=== PATIENT | male | born 1960 | race Caucasian/White ===

== ENCOUNTER 2016-08-14 15:00 | Inpatient (IN) | payer BC ==
[~2016-08-14] VITALS: Ht 188 cm; Wt 106.1 kg
--- NOTE | ~2016-08-14 | OR ---
PATIENT'S NAME: ALFRED LILLY [facility] AGE: 56 Y [address] ROOM: [place] [address] LOCATION: [facility] ADMIT DATE: 08/20/2016 OR/Procedure Report DISCHARGE DATE: FAMILY PHYSICIAN: PRITI PATEL MD ATTENDING PHYSICIAN: HAY MCKENZIE SURGEON: Hay Mckenzie MD HOUSEKEEPING ATTENDANT: 1. Claudio Zapata CST/KAY. 2. Hay Morales. DATE OF PROCEDURE: 08/20/2016 PRE-OP DIAGNOSIS: Degenerative joint disease left knee. POST-OP DIAGNOSIS: Degenerative joint disease left knee. OPERATION: Left total knee arthroplasty with computer navigation. ANESTHESIA: Spinal anesthesia plus adductor canal block plus periarticular local anesthesia (ropivacaine with epinephrine and Toradol). ESTIMATED BLOOD LOSS: Less than 10 mL. DRAIN: None. SPECIMEN: None. COMPLICATIONS: None. IMPLANT SYSTEM: Welcome Triathlon Size 6 left posterior stabilized femoral component Size 5 universal modular tibial baseplate. 9 mm posterior stabilized size 5 X3 tibial polyethylene insert. 35 mm Oval X3 patella component (triple pegged). INDICATIONS FOR SURGERY: Alfred Lilly is a 56-year-old male who presents with advanced left knee degenerative joint disease and associated severely compromised activities of daily living. The patient has decided to proceed with knee replacement after having been thoroughly counseled regarding the associated risks, benefits, and limitations. We have specifically reviewed the risks and implications of infection, deep venous thrombosis, pulmonary embolism, mortality, neurovascular complications, blood transfusion (and associated potential for disease transmission or transfusion reaction), stiffness, instability, mechanical deterioration of the components (due to wear and or loosening), and the potential need for revision. We have also emphasized the importance of active involvement and compliance with post- operative physical therapy as a means of optimizing range of motion and PATIENT'S NAME: ALFRED LILLY [facility] AGE: 56 Y [address] ROOM: [place] [address] LOCATION: [facility] ADMIT DATE: 08/20/2016 OR/Procedure Report DISCHARGE DATE: FAMILY PHYSICIAN: PRITI PATEL MD ATTENDING PHYSICIAN: HAY MCKENZIE functional recovery. Informed consent has been granted. DESCRIPTION OF PROCEDURE: The patient was positioned supine after administration of anesthesia and prophylactic antibiotics. A well-padded pneumatic tourniquet was placed around the left proximal thigh, and the left lower extremity was prepped and draped with vigilant sterile technique. The patient's name as well as the intended operative side and procedure were confirmed with a verbal time-out involving myself, the circulating nurse, the scrub nurse, and the anesthesiologist. Examination under anesthesia demonstrated a long curvilinear medial parapatellar arthrotomy scar with associated moderate surrounding subcutaneous adipose atrophy. There was a relatively short lateral parapatellar arthrotomy scar. The preexisting curvilinear medial scar was incorporated into the incision. There were no active skin lesions or masses. There was a moderate effusion. There was no erythema. There was no abnormal warmth. Range of motion under anesthesia was from a 2-degree flexion contracture to 130 degrees of flexion. There was no clinically evident ligamentous insufficiency. The left lower extremity was elevated and exsanguinated with an Esmarch wrap, and the pneumatic tourniquet was inflated to 300mmHg. The knee was approached through a longitudinal midline incision. A medial parapatellar arthrotomy was performed and the patella was everted. Examination of the joint space demonstrated a moderate amount of benign-appearing translucent synovial fluid. There was no active synovitis. There was a 5 mm smoothly contoured osseous loose body at the posterior aspect of the intercondylar notch. The anterior cruciate ligament was present but attenuated. The posterior cruciate ligament was intact. There were small osteophytes at the intercondylar notch. There was a markedly hypertrophic fibrotic infrapatellar fat pad. This was excised. The superior capsule demonstrated extensive fibrosis as well, and the fibrotic portions of the capsule were excised. There was full-thickness loss of articular cartilage involving a 1 cm region at the medial aspect of the apex of the patella. There was a 1 x 3 cm region of full-thickness articular cartilage loss at the medial femoral condyle (with extensive high-grade surrounding partial-thickness articular cartilage loss). There were 2 separate 5 x 20 mm regions of full-thickness articular cartilage loss at the medial tibial plateau. There were extensive grade 3 degenerative changes throughout the remainder of the medial tibial plateau. There was a 1 x 2 cm region of full-thickness articular cartilage loss at the lateral femoral condyle. There were small osteophytes at the medial and lateral femoral condyles as well as the medial tibial plateau. There were moderate grade 3 degenerative changes (with associated full thickness fissuring) at the medial aspect of the lateral tibial plateau. There was a 5 mm region of full- thickness articular cartilage loss at the medial aspect of the femoral PATIENT'S NAME: ALFRED LILLY [facility] AGE: 56 Y [address] ROOM: [address] [address] LOCATION: [facility] ADMIT DATE: 08/20/2016 OR/Procedure Report DISCHARGE DATE: FAMILY PHYSICIAN: PRITI PATEL MD ATTENDING PHYSICIAN: HAY MCKENZIE trochlea and a separate 1 cm diameter region of high-grade partial thickness articular cartilage loss at the femoral trochlea. There were moderate grade 3 degenerative changes throughout the lateral facet of the patella. There was mild inner perimeter tearing of the lateral meniscus. The medial meniscus was truncated, but there was extensive degenerative tearing of the residual portions of the anterior and posterior horns of the medial meniscus. Photographic documentation of the patient's intra-articular findings was obtained. Remnants of the menisci and cruciate ligaments were excised. The [employer] computer navigation femoral tracker was pinned in place at the distal aspect of the femoral trochlea. Absence of motion between the femur and the tracking device was confirmed manually and visually. Femoral osseous landmarks were obtained in order to calibrate the computer navigation system. Landmarks included the center of rotation of the ipsilateral hip, the center-point of the distal femur, the femoral AP axis, 57 points on the medial femoral condyle articular surface, and 57 points on the lateral femoral condyle articular surface. The [employer] computer navigation system was subsequently utilized to position the distal femoral resection block such that the distal femoral resection was performed perfectly perpendicular to the femoral mechanical axis. The distal femoral resection was performed with a [employer] Precision oscillating saw. The [employer] computer navigation tibial tracker was pinned in place at the anterior aspect of the tibial plateau. Absence of motion between the tibia and the tracking device was confirmed manually and visually. Tibial osseous landmarks were obtained in order to calibrate the computer navigation system. Landmarks included the center-point of the tibial plateau, the AP tibial axis, 57 points on the medial tibial plateau articular surface, 57 points on the lateral tibial plateau articular surface, the medial malleolus, and the lateral malleolus. The [employer] computer navigation system was subsequently utilized to position the proximal tibial resection block such that the proximal tibial resection was performed perfectly perpendicular to the tibial mechanical axis. The proximal tibial resection was performed with a [employer] Precision oscillating saw. Perpendicularity of the tibial resection with respect to the tibial shaft axis was reconfirmed by inserting a spacer- block attached to an extramedullary guide isaac. External rotation of the anterior and posterior femoral resections was set parallel to the epicondylar axis and carefully adjusted in order to create a rectangular flexion gap. The box resection was performed with a reciprocating saw. Anterior and posterior chamfer resections were performed with the oscillating saw. Posterior condyle osteophytes were excised with an osteotome. All other osteophytes were excised with a rongeur. Resection of all remnants of the menisci was reconfirmed. Flexion and extension gaps were PATIENT'S NAME: ALFRED LILLY [facility] AGE: 56 Y [address] ROOM: [place] [address] LOCATION: [facility] ADMIT DATE: 08/20/2016 OR/Procedure Report DISCHARGE DATE: FAMILY PHYSICIAN: PRITI PATEL MD ATTENDING PHYSICIAN: HAY MCKENZIE confirmed to be symmetric and well balanced with a spacer-block technique. The patella resection was performed with an oscillating saw such that the composite thickness of the reconstructed patella was equivalent to the thickness of the [place]kiak patella. Patella tracking was confirmed to be optimal. Patella tracking was optimal, and there was no need for a lateral retinacular release. All trial components were removed and all prepared osseous surfaces were thoroughly irrigated with pulsatile saline lavage and dried prior to cementing all three components in a single stage using [employer] Simplex cement containing pre-mixed tobramycin. All extruded excess cement was removed. The entire joint space was thoroughly inspected and thoroughly irrigated with bacteriostatic pulsatile saline lavage to assure that there was no residual debris of any sort. Final range of motion was from full extension (with no passive hyperextension) to 130 degrees of flexion. Patella tracking was reconfirmed to be optimal. There was excellent anteroposterior stability at 90 degrees of flexion. There was less than 1 mm of medial lift-off to valgus stress in full extension. There was less than 1 mm of lateral lift-off to varus stress in full extension. The arthrotomy was closed with multiple simple and [id number] interrupted #1 Vicryl. Subcutaneous tissues were thoroughly re-irrigated with bacteriostatic pulsatile saline lavage. Subcutaneous tissues were re- approximated with simple buried interrupted #0 Vicryl sutures. The skin was closed with simple buried interrupted 2-0 Vicryl sutures followed by surgical jayden. The dressing consisted of Xeroform gauze, 4x4 gauze, ABD pads and two 6-inch Hema Wraps. There were no intra-operative complications. MD SHANICE RODRIGUEZ/lukasz /[id number] d: 08/20/16 1748 t: 08/28/16 0752, OPERATIVE SUMMARY
--- NOTE | ~2016-08-14 | DS ---
PATIENT'S NAME: CHICO MALLORY [facility] AGE: 56 Y [address] ROOM: [address] [address] LOCATION: [facility] ADMIT DATE: 08/20/2016 Discharge Summary DISCHARGE DATE: 08/22/2016 FAMILY PHYSICIAN: Kevin Mckay MD ATTENDING PHYSICIAN: Hay Mckenzie PRIMARY DIAGNOSIS: Degenerative joint disease of the left knee. SECONDARY DIAGNOSIS: Hyperlipidemia. PROCEDURE PERFORMED: Left total knee arthroplasty with computer navigation. HISTORY: The patient is a 56-year-old male, who presents with advanced left knee degenerative joint disease and associated severely compromised activities of daily living. The patient has decided to proceed with total knee arthroplasty after having been thoroughly counseled regarding the risks, benefits, limitations and alternatives. Please refer to the outpatient clinic notes and admission history and physical for this patient. HOSPITAL COURSE: The patient underwent a left total knee arthroplasty on 08/20/2016 without complications. Spinal plus adductor canal block plus periarticular local anesthesia was utilized. The patient received 24 hours of perioperative prophylactic antibiotics and remained hemodynamically stable, neurovascularly intact throughout the entire hospital course. The postoperative prophylactic deep venous thrombosis prophylaxis consisted of Xarelto, early mobilization and pneumatic compression devices. Daily physical therapy for gait training, transfer training range of motion and quadriceps isometric exercises were received. The patient progressed well in physical therapy. On the date of discharge, 08/22/2016, the incision at the knee was healing well and showed no signs of infection. DISPOSITION: Home. DISCHARGE ACTIVITY: The patient is to bear weight as tolerated with range of motion and quadriceps isometric exercises as instructed. The operative extremity is to be elevated at least 90% of the day. There is to be sterile 4x4 gauze dressings to the incision daily. Dr. Mckenzie is to be notified immediately if there is any increased pain, fevers, chills erythema or drainage. DISCHARGE MEDICATIONS: 1. Xarelto 10 mg, take 1 tablet p.o. daily for DVT prevention. 2. Valium 5 mg, take 1/2 tablet to 1 tablet every 6 hours as needed for spasm. 3. Hydromorphone 2 mg, take 1 tablet p.o. every 4 hours as needed for pain. PATIENT'S NAME: CHICO MALLORY [facility] AGE: 56 Y [address] ROOM: [facility] [place], [place] [address] LOCATION: [facility] ADMIT DATE: 08/20/2016 Discharge Summary DISCHARGE DATE: 08/22/2016 FAMILY PHYSICIAN: Kevin Mckay MD ATTENDING PHYSICIAN: Hay Mckenzie FOLLOWUP: Followup appointment is to be with Dr. Mckenzie, date is scheduled from 1 week subsequent to dismissal from the hospital for initial postop evaluation and x-rays at that time. ЕКАТЕРИНА TORRES FOR HAY MCKENZIE MD TLB/modl /[id number] d: 09/04/161 t: 09/04/16 0932, DISCHARGE SUMMARY
[2016-08-14] MEDS ORDERED: CELEBREX200 MG PO (15:29)
[2016-08-14] MEDS ORDERED: LIPITOR40 MG PO (15:29)
[2016-08-22] MEDS ORDERED: TYLENOL EXTRA500 MG PO (12:21)
[2016-08-22] MEDS ORDERED: FLEXERIL10 MG PO (12:22)
[2016-08-22] MEDS ORDERED: COLACE100 MG PO (12:23)
[2016-08-22] MEDS ORDERED: NEURONTIN300 MG PO (12:24)
[2016-08-22] MEDS ORDERED: MIRALAX17 GM PO (12:25)
[2016-08-22] MEDS ORDERED: XARELTO10 MG PO (12:26)
[2016-08-22] MEDS ORDERED: VALIUM5 MG PO (12:26)
[2016-08-22] MEDS ORDERED: DILAUDID 2MG(HYD2 MG PO (12:27)
== END 2016-08-22 13:33 | disposition disaster alternative care site (69) | DRG 470 ==
LOC: G3N 08-20 05:15
PROVIDERS: ADMIT Orthopaedic Surgery
PROC: 0SRD0J9 Replacement of Left Knee Joint with Synthetic Substitute, Cemented, Open Approach (ICD-10-PCS; principal; 2016-08-20)
DX: M17.12 Unilateral primary osteoarthritis, left knee (principal); E78.5 Hyperlipidemia, unspecified; E66.3 Overweight; Z68.25 Body mass index [BMI] 25.0-25.9, adult
CPT/HCPCS: C1713; C1776; J0690; J1100; J1885; J2001; J2250; J2405; J2795; J7120